=== PATIENT | male | born 1995 | race Caucasian/White ===

== ENCOUNTER 2019-03-20 19:30 | Emergency (ER) | payer OTHER, SELFPAY ==
[2019-03-20 19:30] VITALS: BP 163/75; PULSE 83; RESP 16; TEMP 36.8; O2SAT 100; BMI 29.5
--- NOTE | 2019-03-20 19:44 | RAD_ITS ---
STUDY: X-RAY - LEFT KNEE REASON FOR EXAM: Male, 23 years old. Fall TECHNIQUE: 4 view(s) of the knee. COMPARISON: None. FINDINGS: There is no evidence of fracture or dislocation. There are no significant degenerative changes. There are no radiodense foreign bodies. RAD/Knee 4 or More Views IMPRESSION: No fracture or dislocation. Electronically Signed: Edouard Avila, at 20:03 EDT Tel , Service support ,
--- NOTE | 2019-03-20 19:44 | ED.VIS.GEN ---
History of Present Illness Chief Complaint: Lower Extremity Injury Detail of Chief Complaint: Left knee injury Informant: Patient Onset: Weeks - 1 week Current Severity: Mild Maximum Severity: Moderate Narrative: Patient presents with continued left knee pain after a fall 1 week ago. He states he slipped on wet pavement and landed directly on his bent left knee. He has had bruising and swelling over the anterior knee since that time. He has been able to ambulate on it. He denies pain at the ankle or hip. Past Medical History - Allergies and Home Meds Allergies/Adverse Reactions: Allergies No Known Allergies Allergy (Verified 03/20/19 19:32) Primary Care Physician: Darryn Cunningham MD [NON-STAFF] - Prior records reviewed: Yes Past Medical History: - - Reviewed Smoking Status: Never smoker Review of Systems General: Denies: Chills, Fever Eyes: Denies: Visual changes - bilaterally ENT: Denies: Bilateral ear pain Cardiovascular: Denies: Chest pain Respiratory: Denies: Dyspnea Gastrointestinal: Denies: Abdominal pain Musculoskeletal: Reports: Extremity Pain Skin: Denies: Rash Neurological: Denies: Weakness, Parasthesia Hematologic: Denies: Easy bruising Allergy: Denies: Uticaria Physical Exam Vital Signs/Narrative: Vital Signs Temp Pulse Resp BP Pulse Ox 03/20/19 19:30 98.2 F 83 16 163/75 H 100 Inital Vital Signs reviewed: Yes General: Well nourished, Well developed Head: Normocephalic ENT: Moist mucous membranes Cardiovascular: Regular rate, Regular rhythm Respiratory: No distress Extremities: - - Ecchymosis and mild edema over the anterior left knee. He is able to straight leg raise his foot off the bed. No tenderness over the anterior tibia or calf. Strong distal pulses noted. Good range of motion. Skin: - - Ecchymosis as above Neurological: Alert, Oriented x3, Normal Strength, Normal Sensation Psychological: Normal affect Diagnostic/Tx/Re-eval Impressions Knee X-Ray 03/20/19 19:44 IMPRESSION: No fracture or dislocation. Electronically Signed: Edouard Avila, at 20:03 EDT Tel , Service support , 03/20/19 19:44 Knee 4 or More Views [RAD] Stat - Medical Decision Making X-rays of the left knee are unremarkable. Patient will be advised to use Shad wrap and anti-inflammatories. Follow-up with PCP if not improving. ED Disposition - Plan for ED Patient: Disposition: Home or Assisted Living Diagnosis: Knee contusion Instructions: CONTUSION, Lower Extremity Referrals: Darryn Cunningham MD [NON-STAFF] - 10-14 Days if not better
== END 2019-03-20 20:45 | disposition home or self-care (01) ==
PROVIDERS: Emergency Provider Emergency Medicine
DX: S89.92XA Unspecified injury of left lower leg, initial encounter (principal); W01.0XXA Fall on same level from slipping, tripping and stumbling without subsequent striking against object, initial encounter
CPT/HCPCS: 73564; 99282

== ENCOUNTER 2021-10-15 13:48 | Emergency (ER) | payer OTHER, SELFPAY ==
[2021-10-15 13:48] VITALS: BP 150/82; PULSE 90; RESP 16; TEMP 37; O2SAT 99; BMI 26.4
--- NOTE | 2021-10-15 13:55 | RAD_ITS ---
HISTORY TRAUMA/FALL -- IN ED WR. TECHNIQUE: XR Ankle Min 3 Views. COMPARISON: 10/21/2013. FINDINGS: BONES : Small avulsion fracture fragment of the lateral malleolus. Talar dome smooth. Mineralization unremarkable. JOINTS: No dislocation. Joint spaces maintained. SOFT TISSUES: Moderate soft tissue swelling. Joint effusion. RAD/Ankle min 3 Views IMPRESSION: Small avulsion fracture of the lateral malleolus in the right ankle. Electronically Signed: Idalia Brizuela MD at 14:15 EDT ,
--- NOTE | 2021-10-15 14:31 | ED.VIS.LOWEX ---
HPI History of Present Illness Chief Complaint: Lower Extremity Injury Informant: patient Onset/Context/Timing Onset: Yesterday Context: Sudden Onset Timing: Continuous Quality of Pain: Aching Location: Lateral right ankle Current Severity: Moderate Maximum Severity: Moderate Worsened by: Walking Relieved by: Resting Associated Symptoms Associated Symptoms: Negative for Parasthesia, Weakness and Loss of Funtion Narrative Narrative: Patient playing golf yesterday and accidentally stepped on the edge of concrete inverting his right ankle which she has done in the past, pain and swelling about the right lateral aspect of the ankle. He was able to walk on it right after the injury and has been able to now but wants to make sure he did not break anything. [facility] Medical History Diarrhea Diarrhea Fatigue Gastroenteritis Limb weakness SOB (shortness of breath) URI (upper respiratory infection) Home Medications naproxen 500 mg PO BID #14 tab 10/15/21 [Rx Last Taken Unknown] Allergy/AdvReac Type Severity Reaction Status Date / Time deer hair Allergy Itching Uncoded 10/15/21 13:50 Surgical History (Updated 12/28/20 @ 14:42 by Flori Elizondo) [place] teeth extracted Social History Smoking Status: Never smoker ROS ROS ED Constitutional Constitutional ED: Denies chills or fever(s) Musculoskeletal Musculoskeletal: Reports extremity pain; Denies neck pain Integumentary Denies Abrasions, rash or wounds Neurologic Neurologic: Denies paresthesias or weakness EXAM Physical Exam Const Vital Signs: 10/15/21 13:48 Temperature 98.6 F Temperature Source Temporal Pulse Rate 90 Respiratory Rate 16 Blood Pressure 150/82 H Blood Pressure Mean 104 Pulse Ox 99 Oxygen Delivery Method Room Air Positive well nourished and well developed General Appearance ED: well developed and NAD Neck full ROM and supple Back/Spine normal ROM and normal to inspection Extremity Extremity Narrative: Swelling and tenderness to the right lateral malleolus. Nontender medial malleolus, base of fifth metatarsal, fibular head. Rest of foot is nontender except in the area of the ATFL just anterior to the lateral malleolus. No deformities. Stable with medial/lateral stress on the ankle joint. Limited range of motion due to pain but able. Neuro oriented x3, no focal motor deficits and no sensory deficits noted Sensorium / Orientation: alert Psych mental status grossly normal and thought process normal Skin no wounds Rashes: no rashes MDM MDM MDM Narrative Medical decision making narrative: Three-view right ankle my interpretation very small distal chip fracture lateral malleolus, radiology in agreement. However, patient states he has had many sprains of this ankle in the past, and it is certainly possible that this small chip/avulsion is not new. He did have a right tib-fib in 2014, there was not evident there but it was not a focused ankle series. Discussed with patient in my opinion okay to treat this as a sprain, will place him in an Aircast, orthopedic follow-up as needed. Radiography Diagnostic Testing: Clinical Impression(s) from Imaging Studies Ankle X-Ray 10/15/21 13:55 IMPRESSION: Small avulsion fracture of the lateral malleolus in the right ankle. Electronically Signed: Idalia Brizuela MD at 14:15 EDT , Discharge Plan Triage Chief Complaint: Lower Extremity Injury ED Provider: Senthil Real Dx/Rx/DC Orders Clinical Impression: Right ankle sprain, Closed fracture of distal end of right fibula Instructions: ED Ankle Fracture, Distal Fibula, ED Ankle Sprain (Adult) Prescriptions: New naproxen 500 MG tablet 500 mg PO BID Qty: 14 RF: 0 Primary Care Provider: Care Physician,No Primary Referrals: London Elias DO [STAFF PHYSICIAN] - (2 wks if not improved) Care Physician,No Primary [Primary Care Provider] - Disposition Disposition: Home, Self Care
== END 2021-10-15 14:47 | disposition home or self-care (01) ==
LOC: ED 14:45
PROVIDERS: Emergency Provider Emergency Medicine; PCP Family Medicine; Visit Provider Emergency Medicine
DX: S93.401A Sprain of unspecified ligament of right ankle, initial encounter (principal); S82.61XA Displaced fracture of lateral malleolus of right fibula, initial encounter for closed fracture; S82.401A Unspecified fracture of shaft of right fibula, initial encounter for closed fracture; X50.1XXA Overexertion from prolonged static or awkward postures, initial encounter; Y93.53 Activity, golf; Y92.39 Other specified sports and athletic area as the place of occurrence of the external cause
CPT/HCPCS: 73610; 99282